=== PATIENT | male | born 1985 | race Caucasian/White ===

== ENCOUNTER → 2024-07-15 09:08 | Outpatient (CLI) | payer OTHER, SELFPAY ==
--- NOTE | 2024-07-15 09:10 | DI.ECHO.S_ITS ---
[facility]+ [facility] : : [address] : : [place] : : [id number] : : Phone: [phone] Echocardiogram Report + + :Name: ABHIJEET KIRBY Study Date: 07/15/2024 Height: 72 in : :Hospital ReadingLocation: Weight: 250 lb : : Gender: Male BSA: 2.3 m2 : :: 1985 Age: 38 yrs BP: 157/95 mmHg: :Reason For Study: VA EVAL : :Ordering Physician: HEATHER, : :INOCENCIA Performed By: Warner York : :Referring: UNSPECIFIED : + + Interpretation Summary 1) Normal left ventricular thickness, size, wall motion, and systolic function (EF 55-60%). 2) Mildly enlarged right ventricle with normal function. 3) No significant valvular abnormalities. 4) No prior Echo available for comparison. Procedure: A two-dimensional transthoracic echocardiogram with color flow and Doppler was performed. The study quality was technically good. There is no prior echocardiogram noted for this patient. The patient was in normal sinus rhythm during the exam. Left Ventricle: The left ventricle is mildly dilated. There is normal left ventricular wall thickness. The ejection fraction is estimated to be 55-60%. There are no focal wall motion abnormalities. Diastolic parameters suggest probable normal left ventricular diastolic function and normal filling pressures. Right Ventricle: The right ventricle is mildly dilated. The right ventricular systolic function is normal. Atria: The left atrial size is normal. The right atrium is mildly dilated. There is no Doppler evidence for an interatrial shunt. Mitral Valve: The mitral valve leaflets appear normal. There is no evidence of stenosis, fluttering, or prolapse. There is trace mitral regurgitation. Aortic Valve: The aortic valve is trileaflet. The aortic valve opens well. There is no aortic valve stenosis. No aortic regurgitation is present. Tricuspid Valve: The tricuspid valve leaflets are thin and pliable. No tricuspid regurgitation. Pulmonic Valve: The pulmonic valve leaflets are thin and pliable; valve motion is normal. There is trace pulmonic regurgitation. Great Vessels: The aortic root is mildly dilated. The dimensions of the ascending aorta are normal. The pulmonary artery is normal size. The IVC is of normal diameter and collapses greater than 50% with a sniff. This suggests a low right atrial pressure of 3 mm Hg. Pericardium/ Pleura There is no pericardial effusion. MMode/2D Measurements & Calculations LVIDd: 6.0 cm LVOT diam: 2.4 cm LVIDs: 3.2 cm Ao root diam: 3.8 cm FS: 45.8 % asc Aorta Diam: 3.2 cm EPSS: 0.88 cm Ao Arch Diam (Prox Trans): 1.7 cm IVSd: 1.0 cm LVPWd: 1.0 cm LV tinoco. diameter/BSA (cm/m^2): 2.5 LV sys. diameter/BSA (cm/m^2): 1.4 LA A2 area: 23.4 cm2 RA long axis: 5.3 cm LA A4 area: 20.9 cm2 RA area: 16.9 cm2 LA length (vol): 5.5 cm RA vol: 46.0 ml LA vol: 75.0 ml RA : 19.7 ml/m2 LA vol index: 32.0 ml/m2 IVC diam: 1.9 cm RVD1 (basal): 4.2 cm RVD2 (mid): 3.2 cm TAPSE: 3.6 cm Doppler Measurements & Calculations Ao V2 max: 144.7 cm/sec LVOT Max Jackson: 118.3 cm/sec Ao V2 mean: 95.8 cm/sec LV V1 max P.6 mmHg Ao max P.4 mmHg LV V1 VTI: 24.2 cm Ao mean P.1 mmHg MARY ELLEN(I,D): 4.0 cm2 Ao V2 VTI: 27.3 cm MARY ELLEN(V,D): 3.7 cm2 sev ratio: 0.88 MARY ELLEN indexed to BSA (cm^2/m^2): 1.7 MV E max jackson: 79.8 cm/sec PA V2 max: 144.2 cm/sec MV A max jackson: 47.6 cm/sec PA V2 mean: 85.3 cm/sec MV E/A: 1.7 PA mean P.4 mmHg Med Peak E' Jackson: 10.4 cm/sec PA pr(Accel): 22.5 mmHg E/E' med: 7.7 Lat Peak E' Jackson: 15.8 cm/sec E/E' lat: 5.0 E/e' average: 6.4 MV dec time: 0.18 sec SV(LVOT): 109.8 ml Reading Physician:[id number]:36 PM
== END ==
PROVIDERS: Referring Provider Physician Assistant; Visit Provider Physician Assistant
DX: Z00.00 Encounter for general adult medical examination without abnormal findings (principal); I77.810 Thoracic aortic ectasia
CPT/HCPCS: 93306